=== PATIENT | female | born 1950 | race Caucasian/White ===

== ENCOUNTER 2022-09-10 11:57 | Day surgery (SDC) | payer MEDICARE, OTHER ==
[~2022-09-10] VITALS: Ht 162.6 cm; Wt 95.0 kg
[~2022-09-10 11:57] MED LIST: ALDACTAZIDE 251 EACH PO; AMBIEN10 MG PO; ASPIRIN EC81 MG PO; BUSPIRONE HCL5 MG PO; C COMPLEX500 MG PO; CIPROFLOXACIN250 MG PO; CITRACAL + D E1 EACH PO; CLOBETASOL PROP15 G1 TOP; CLOTRIMAZOLE15 GM TOP; DETROL LA2 MG PO; DETROL LA4 MG PO; FLUCONAZOLE150 MG PO; HYDROCODON-ACE1 EA11 PO; IRON325 M1 PO; MIRALAX17 GM PO; OXYCODONE HCL10 MG PO; PERCOCET 7.5-31 EACH PO; PREMARIN42.5 GM VAGINAL; PROMETHAZINE-COD5 ML PO; SIMVASTATIN80 MG PO; SPIRONOLACTONE1 EACH PO; TEGRETOL XR100 MG PO; ZOLPIDEM TARTRA10 MG PO
[2022-09-10] MEDS ORDERED: TRIAMTERENE-HC1 EAC3 PO (12:32)
[2022-09-10] MEDS ORDERED: ATIVAN0.5 MG PO (12:34)
--- NOTE | 2022-09-10 14:56 | NUR ---
09/10/22 1452 Jie Otero 145-PATIENT ARRIVED TO PACU ON 3L NC PLACED ON 2L RR EVEN. PATIENT AWAKE DENIES PAIN OR NAUSEA HOB ELEVATED. IVF INFUSING. ABDOMEN SOFT ENCOURAGED TO PASS GAS.
--- NOTE | 2022-09-13 21:49 | OR ---
[facility] [address], [place] [address] Signed DATE OF OPERATION: 09/10/2022 SURGEON: See Love MD PREOPERATIVE DIAGNOSIS: Family history of colon cancer (mother) and anal carcinoma (father). POSTOPERATIVE DIAGNOSIS: Extensive sigmoid and left-sided diverticulosis, no evidence of polyps or cancer. PROCEDURE: Total colonoscopy to cecum. ANESTHESIA: Intravenous sedation, fentanyl 125 mcg and Versed 8 mg. INDICATIONS: This 72-year-old white woman is a patient of Marjorie iVctor. She last underwent colonoscopy by me in 2014, which was free of findings of polyps. She does have family history of colon cancer in her mother and anal carcinoma in her father. She is currently symptom free, having no bleeding, diarrhea, or constipation. She understands the risks of screening colonoscopy including, but not limited to bleeding, infection, and perforation and wished to proceed. FINDINGS: The prep was good. Complete colonoscopy was undertaken to the cecum without question. Numerous diverticula were noted in the sigmoid and left colon. There was no evidence of polyps or colitis or cancer. DESCRIPTION OF PROCEDURE: The patient was brought to the endoscopy suite and placed in lateral decubitus position given intravenous sedation to the point of slurred speech and nystagmus. Digital rectal examination was normal. An Olympus video colonoscope was passed into the rectum and manipulated throughout the colon, ultimately intubating the cecum itself. The ileocecal valve and appendiceal orifice were normal. The scope was then withdrawn and examination throughout showed no sign of abnormality other than diverticular change of the sigmoid and left colon. Retroflexed view of the rectum was normal as well. The scope was removed. The patient was taken to the recovery room in good condition. Electronically Signed By: SEE LOVE MD 09/13/22 2149 PATIENT NAME: LANE BURGESS OPERATIVE REPORT DATE OF : 48 REPORT #: [id number] PHYSICIAN: SEE LOVE MD PCP: MARJORIE VICTOR PA-C REPORT IS CONFIDENTIAL AND NOT TO BE RELEASED WITHOUT AUTHORIZATION [facility] [address] [place], [place] [address] Signed CONCLUDING DIAGNOSIS: Diverticulosis. PLAN: Recommend repeat colonoscopy in 5 years based on family history or sooner if symptoms should occur. We would recommend high-fiber diet as well. She will return to the ongoing care of LOLLY Segura. MD KEN Fenton/MODL /[id number] cc: Marjorie Victor PA-C Copies: MARJORIE VICTOR PA-C ~ Electronically Signed By: SEE LOVE MD 09/13/22 2149 PATIENT NAME: LANE BURGESS OPERATIVE REPORT DATE OF : 48 REPORT #: [id number] PHYSICIAN: SEE LOVE MD PCP: MARJORIE VICTOR PA-C REPORT IS CONFIDENTIAL AND NOT TO BE RELEASED WITHOUT AUTHORIZATION
== END 2022-09-10 15:35 | disposition home or self-care (01) ==
LOC: OPS 11:57 → DS 11:57 → OPS 12:45 → DS 13:45 → OPS 13:45 → DS 14:00 → OPS 15:35
PROVIDERS: ATTEND Surgery
PROC: 0DJD8ZZ Inspection of Lower Intestinal Tract, Via Natural or Artificial Opening Endoscopic (ICD-10-PCS; principal; 2022-09-10 12:45)
DX: Z12.11 Encounter for screening for malignant neoplasm of colon (principal); K57.30 Diverticulosis of large intestine without perforation or abscess without bleeding; I10 Essential (primary) hypertension; Z80.0 Family history of malignant neoplasm of digestive organs; Z88.0 Allergy status to penicillin; Z90.711 Acquired absence of uterus with remaining cervical stump; Z98.890 Other specified postprocedural states; Z96.659 Presence of unspecified artificial knee joint
CPT/HCPCS: 99153; G0500; J0690; J2250; J3010; J7121